=== PATIENT | male | born 1970 | race Caucasian/White ===

== ENCOUNTER → 2018-01-22 | Outpatient (CLI) | payer MEDICAID ==
--- NOTE | 2018-01-22 18:23 | US ---
EXAMINATION TYPE: US scrotum with doppler. Grayscale and color Doppler Duplex imaging performed of t anali scrotum. DATE OF EXAM: 01/22/2018 COMPARISON: NONE CLINICAL HISTORY: N50.811 Testicular pain. Bilateral pain on and off x 2 months. EXAM MEASUREMENTS: TESTICLES: Right Testicle: 5.0 x 2.6 x 4.0 cm Left Testicle: 5.3 x 2.6 x 3.4 cm EPIDIDYMIS HEAD: Right Epididymis: .4 x 1.0 x .8 cm Left Epididymis: .6 x .9 x .8 cm Doppler performed to assess for testicular vascularity; good bilateral color flow and waveforms are s een. There is no evidence of testicular torsion. Presence of hydroceles: No Presence of varicoceles: No Bilateral good color doppler visualized. IMPRESSION: Normal testicular sonogram. No testicular torsion or mass.
== END | disposition home or self-care (01) ==
LOC: RADUSMAIN 17:25
PROVIDERS: ATTEND Family Medicine
DX: N50.811 Right testicular pain (principal); N50.812 Left testicular pain
CPT/HCPCS: 76870; 93975